=== PATIENT | female | born 1975 | race Caucasian/White ===

== ENCOUNTER → 2020-03-13 | Outpatient (CLI) | payer OTHER ==
[~2020-03-13] MED LIST: Birth Control; COUMADIN 2 MG TA2 M1; EXCEDRIN MIGRA1 EAC1 PO; HYDROCODONE-AP1 EAC6 PO; HYOSCYAMINE0.375 M2 PO; NOHOMEMEDICATIONS; PERCOCET 5-3251 EACH PO; PHENERGAN 25 MG25 M1 PO; TRAMADOL 50 MG50 MG PO; XARELTO10 MG PO; XARELTO15 MG PO
== END ==
LOC: M.ULTRA 10:02
PROVIDERS: ATTEND Specialist
DX: N63.11 Unspecified lump in the right breast, upper outer quadrant (principal)

== ENCOUNTER 2020-08-31 15:25 | Emergency (ER) | payer OTHER ==
[~2020-08-31] VITALS: Ht 157.5 cm; Wt 72.6 kg
[2020-08-31] MEDS ORDERED: FLONASE 0.05%50 MCG NARES (15:35)
[2020-08-31] MEDS ORDERED: ONZETRA XSAIL11 MG PO (15:35)
[2020-08-31] MEDS ORDERED: EXCEDRIN MIGRA1 EAC1 PO (15:36)
[2020-08-31] MEDS ORDERED: BUTALB-APAP-CA1 EACH PO ×2 (17:32→17:38)
[2020-08-31 18:05] VITALS: BP 110/65
== END 2020-08-31 18:05 | disposition home or self-care (01) ==
LOC: M.ERS 15:25
DX: G43.009 Migraine without aura, not intractable, without status migrainosus (principal); J45.909 Unspecified asthma, uncomplicated; Z86.718 Personal history of other venous thrombosis and embolism; Z79.899 Other long term (current) drug therapy; Z79.82 Long term (current) use of aspirin; Z88.8 Allergy status to other drugs, medicaments and biological substances

== ENCOUNTER 2020-09-05 18:44 | Emergency (ER) | payer OTHER ==
[~2020-09-05] VITALS: Ht 157.5 cm; Wt 72.6 kg
[~2020-09-05 18:44] MED LIST changes: +BUTALB-APAP-CA1 EACH PO; +FLONASE 0.05%50 MCG NARES; +ONZETRA XSAIL11 MG PO
[2020-09-05] MEDS ORDERED: MEDROLDOSEPACK PO (21:04)
[2020-09-05] MEDS ORDERED: IBUPROFEN 800800 M1 PO (21:04)
[2020-09-05 21:25] VITALS: BP 134/89
== END 2020-09-05 21:26 | disposition home or self-care (01) ==
LOC: M.ERS 18:44
DX: I80.8 Phlebitis and thrombophlebitis of other sites (principal); G43.909 Migraine, unspecified, not intractable, without status migrainosus; J45.909 Unspecified asthma, uncomplicated; Z86.718 Personal history of other venous thrombosis and embolism; Z88.8 Allergy status to other drugs, medicaments and biological substances

== ENCOUNTER 2021-07-20 10:59 | Emergency (ER) | payer OTHER ==
[~2021-07-20] VITALS: Ht 152.4 cm; Wt 68.0 kg
[~2021-07-20 10:59] MED LIST changes: +IBUPROFEN 800800 M1 PO; +MEDROLDOSEPACK PO
[2021-07-20 11:29] LABS: URINE BILIRUBIN NEGATIVE (Negative); URINE BLOOD 1+ (Negative); URINE CLARITY CLEAR; URINE COLOR YELLOW; URINE GLUCOSE-RANDOM NEGATIVE (Negative); URINE KETONES NEGATIVE (Negative); URINE LEUKOCYTES-REFLEX NEGATIVE (Negative); URINE NITRITE-REFLEX NEGATIVE (Negative); URINE PROTEIN NEGATIVE (Negative); URINE UROBILINOGEN 0.2 E.U./dl (0.2-1.0)
[2021-07-20 11:37] LABS: BACTERIA-REFLEX 1-9 Few /HPF (None Seen); CASTS None Seen /LPF (None Seen); CRYSTALS None Seen /LPF (None Seen); MUCUS None Seen strn/LPF (None Seen); SQUAMOUS >10 Many /LPF (0-3); URINE RBC 0-2 Rare /HPF (0-2); URINE WBC-REFLEX None Seen /HPF (0-5)
[2021-07-20] MEDS ORDERED: BACTRIM DS TAB1 EAC1 PO (12:57)
[2021-07-20 13:05] VITALS: BP 132/85
== END 2021-07-20 13:05 | disposition home or self-care (01) ==
LOC: M.ERS 10:59
PROVIDERS: Emergency Medicine Emergency Medical Services
DX: S06.0X0A Concussion without loss of consciousness, initial encounter (principal); S00.93XA Contusion of unspecified part of head, initial encounter; N39.0 Urinary tract infection, site not specified; J45.909 Unspecified asthma, uncomplicated; G43.909 Migraine, unspecified, not intractable, without status migrainosus; Z79.82 Long term (current) use of aspirin; Z79.899 Other long term (current) drug therapy; Z88.8 Allergy status to other drugs, medicaments and biological substances; W22.8XXA Striking against or struck by other objects, initial encounter; Y93.89 Activity, other specified; Y92.89 Other specified places as the place of occurrence of the external cause; Y99.8 Other external cause status